=== PATIENT | female | born 1945 | race Caucasian/White ===

== ENCOUNTER → 2016-06-12 14:50 | Outpatient (CLI) | payer MEDICARE | END | disposition home or self-care (01) | LOC: D.MAMMO 09:00 | DX: R92.8 Other abnormal and inconclusive findings on diagnostic imaging of breast (principal) ==

== ENCOUNTER 2018-08-31 08:00 | Outpatient (CLI) | payer MEDICARE | END 2018-08-31 09:00 | disposition home or self-care (01) | LOC: D.MAMMO 08:00 | PROVIDERS: ATTEND Emergency Medicine | DX: Z12.31 Encounter for screening mammogram for malignant neoplasm of breast (principal) ==